=== PATIENT | male | born 1935 | race Caucasian/White ===

== ENCOUNTER 2016-10-17 11:40 | Emergency (ER) | payer OTHER ==
[~2016-10-17] VITALS: Ht 160 cm; Wt 81.7 kg
--- NOTE | ~2016-10-17 | EKG ---
[place] [address] [facility] [place] [address] ELECTROCARDIOGRAM REPORT Name: RED REYNA Shasha Room #: [facility] Lata#: [id number] Admission: 10/17/16 Attend Phys: Discharge: 10/17/16 Date of : 35 Report #: [id number] THIS REPORT FOR: //name// [facility] ED Test Date: 2016-10-17 Test Time: 12:04:19 Pat Name: RED REYNA Department: Room: Gender: Assembler [employer]: [id number] : 1935 Requested By: Teofilo Huber Order Number: [id number] MD: Jaime Rogers Measurements Intervals [place] Rate: 50 P: 1 MA: 155 QRS: 2 QRSD: 92 T: -19 QT: 451 QTc: 412 Interpretive Statements Sinus Bradycardia Otherwise no significant abnormality No previous ECG available for comparison Electronically Signed On 10-18-2016 14:19:01 RNFA by Jaime Rogers [email or web address] <ELECTRONICALLY SIGNED> By: Jaime Rogers MD, [facility] 10/18/16 1419 1204 1204 Jaime Rogers MD, FACC /EPI
[~2016-10-17 11:40] MED LIST: ACETAMINOPHEN325 M1 PO; ACETAMINOPHN-T1 EACH; ALLOPURINOL 10100 M1 PO; ALLOPURINOL 10100 M2 PO; APAP500; ASA81BEC PO; ASPIRIN325 PO; AUGMENTIN 875875 M1 PO; BENZONATATE200 MG PO; BISACODYL SUPP10 MG RECTAL; BISMATROL262 MG/15 PO; CARVEDILOL12.5 MG PO; COLACE 100 MG100 MG PO; COLCHICINE 0.60.6 M1 PO; COLCRYS; COLCRYS0.6 MG PO; DESYREL150 MG PO; DYAZIDE; EAR WAX DROPS15 ML OTIC; FAMVIR500 MG PO; FENTANYL PA50 MCG/HR TRANSDERM; FLONASE 0.05%50 MCG NASAL; FLOVENT DISKUS50 MCG IH; GAVILAX17 GM PO; HCTZ; HYDROCODON-ACE1 EA10 PO; HYDROCODON-ACE1 EAC5; HYDROCODON-ACE1 EAC5 PO; IMDUR 30 MG TAB30 M1 PO; IMITREX100 MG; LIDODERM 5%1 PATC1 TOP; LISINOPRIL10 MG PO; LISINOPRIL20 MG PO; LOPRESSOR25 PO; LORTAB 5 MG/5001 TA1 PO; MELOXICAM7.5 MG PO; METAMUCIL PAC1 UDPKT PO; METAXALONE800 MG PO; MOBIC; MOBIC15 MG PO; MOBIC7.5 MG PO; MS CONTIN 30 MG30 M1 PO; MS CONTIN15 MG PO; NABUMETONE 500500 M1 PO; NEURONTIN 300300 M1 PO; NEXIUM; NIFEDIPINE ER60 M1 PO; NIFEDIPINE ER90 M1 PO; NORCO 10-325 T1 EACH PO; NORCO 5-325 TA1 EACH PO; NORCO 7.5-3251 EACH PO; OMEPRAZOLE20 MG PO; OXYCONTIN; OXYCONTIN10 M1 PO; PAIN & FEVER325 MG PO; PERCOCET 10-321 EACH PO; PHENERGAN 25 MG25 M1 PO; PROCARDIA PO; ROBITUSSIN DM118 ML PO; ROXICODONE5 M2 PO; SIMVASTATIN20 MG PO; SKELAXIN 800 M800 M1 PO; STOOL SOFTENER50 MG PO; SUMATRIPTAN SUC50 MG PO; TIZANIDINE HCL4 M1 PO; TRAMADOL 50 MG50 MG PO; TRAMADOL-ACETA1 EACH PO; VOLTAREN GEL 1100 G1 TOP
[2016-10-17] MEDS ORDERED: FLOMAX0.4 MG PO (12:11)
[2016-10-17] MEDS ORDERED: ALLOPURINOL 10100 M1 PO (12:11)
[2016-10-17] MEDS ORDERED: FISH OIL 1,001000 M2 PO (12:12)
[2016-10-17 12:15] LABS: HEMATOCRIT 44.3 % (42.0-52.0); HEMOGLOBIN 14.8 gm/dL (14.0-18.0); MCH 31.7 pg (26.0-34.0); MCHC 33.4 % (28.0-37.0); MCV 94.9 fL (80.0-100.0); PLATELET COUNT 217 thou/uL (150-400); RBC 4.66 mil/uL (4.50-6.00); RDW 14.9 % (10.5-14.5); WBC 8.8 thou/uL (4.0-11.0)
[2016-10-17 12:18] LABS: MANUAL DIFF YES
[2016-10-17 12:21] LABS: CALCIUM 8.5 mg/dL (8.5-10.1); CREATININE 1.2 mg/dL (0.6-1.3); POTASSIUM 4.7 mmol/L (3.5-5.1)
[2016-10-17 12:27] LABS: ALBUMIN 3.7 g/dL (3.4-5.0); TOTAL BILIRUBIN 0.4 mg/dL (<0.1-1.0); TOTAL PROTEIN 7.2 g/dL (6.4-8.2)
[2016-10-17 12:48] LABS: TROPONIN-I < 0.04 ng/mL (<0.04-0.07)
[2016-10-17 13:19] LABS: TOTAL CELL COUNT 100
== END 2016-10-17 13:33 | disposition home or self-care (01) ==
LOC: ER 11:40
PROVIDERS: Emergency Medicine
DX: J01.90 Acute sinusitis, unspecified (principal); M25.512 Pain in left shoulder; Z95.5 Presence of coronary angioplasty implant and graft; M10.9 Gout, unspecified; Z98.890 Other specified postprocedural states; Z88.3 Allergy status to other anti-infective agents; Z88.6 Allergy status to analgesic agent; F10.99 Alcohol use, unspecified with unspecified alcohol-induced disorder

== ENCOUNTER 2016-10-20 07:44 | Emergency (ER) | payer OTHER ==
[~2016-10-20] VITALS: Ht 160 cm; Wt 83.0 kg
[~2016-10-20 07:44] MED LIST changes: +FISH OIL 1,001000 M2 PO; +FLOMAX0.4 MG PO
[2016-10-20] MEDS ORDERED: BENADRYL25 MG PO (09:16)
== END 2016-10-20 10:03 | disposition home or self-care (01) ==
LOC: ER 07:44
DX: T48.5X5A Adverse effect of other anti-common-cold drugs, initial encounter (principal); M10.9 Gout, unspecified; Z90.49 Acquired absence of other specified parts of digestive tract; Z88.6 Allergy status to analgesic agent; Z88.8 Allergy status to other drugs, medicaments and biological substances; Y92.89 Other specified places as the place of occurrence of the external cause

== ENCOUNTER 2016-11-05 22:52 | Emergency (ER) | payer OTHER ==
[~2016-11-05 22:52] MED LIST changes: +BENADRYL25 MG PO
== END 2016-11-05 23:25 | disposition left against medical advice (07) ==
LOC: ER 22:52
DX: Z53.21 Procedure and treatment not carried out due to patient leaving prior to being seen by health care provider (principal)